=== PATIENT | male | born 1945 | race Caucasian/White ===

== ENCOUNTER 2016-11-12 10:30 | Inpatient (IN) ==
[2016-11-12] MEDS ORDERED: Lidocaine -MPF 1% 2 ML VIAL ID ONE (10:55)
[2016-11-12] MEDS ORDERED: CeFAZolin Pre 2,000 MG/100 ML 2,000 MG/100 ML BAG IVPB ONE (10:55)
[2016-11-12] MEDS ORDERED: *HR* FentaNYL (PF) 100 MCG/2 ML VIAL ONE (11:05)
[2016-11-12] MEDS ORDERED: Lidocaine -MPF 2% 2 ML VIAL ONE (11:06)
[2016-11-12] MEDS ORDERED: *HR* Midazolam HCl 2 MG/2 ML VIAL ONE (11:06)
[2016-11-12] MEDS ORDERED: *HR* Rocuronium Bromide 50 MG/5 ML VIAL ONE (11:06)
[2016-11-12] MEDS ORDERED: *HR* Propofol 200 MG/20 ML VIAL IVP ONE ×2 (11:06→13:04)
[2016-11-12] MEDS: Plasma-Lyte A (PH 7.4) 1,000 ML IVC SCH ×2 (11:10→14:15)
[2016-11-12] MEDS ORDERED: Insulin Human Regular 10 UNIT in 0.9 % Sodium Chloride 10 ML IV ONE (11:19)
--- NOTE | 2016-11-12 11:37 | Anesthesia Evaluation PreOp ---
Date of Encounter: 11/12/16 Time of Encounter: 11:35 - Past History Planned Operation: left BKA Cardiac History: HTN, Other (PAD) Pulmonary History: Denies Any Significant HX CARDIOVASCULAR PHYSICIAN ASSISTANT History: Other (tremors) Other Medical History: Diabetes Type II Anesthesia History: No Prior Anesthetic Complications, Past Anesthesia (right BKA) Alcohol Use: none Drug use: none Medications and Allergies Aspirin [Lo-Dose Aspirin EC] 81 mg PO DAILY 11/09/16 [History] Collagenase Oint [Santyl] 1 appl TP BID 11/09/16 [History] Insulin ASPART [Novolog] 20 unit SQ BID 11/09/16 [History] Insulin Glargine [Lantus] 40 unit SQ BID 11/09/16 [History] Lisinopril-HCTZ 20-12.5 [Prinzide 20-12.5] 1 each PO DAILY 11/09/16 [History] Loratadine [Allergy Relief] 10 mg PO DAILY 11/09/16 [History] Metoprolol Tartrate [Lopressor] 50 mg PO BID 11/09/16 [History] Pentoxifylline 400 mg PO BID 11/09/16 [History] Saxagliptin HCl/Metformin HCl [Kombiglyze Xr 5-1,000 mg Tab] 1 each PO HS [History] 3 Allergy/AdvReac Type Severity Reaction Status Date / Time amlodipine [From [facility]] AdvReac Nausea Verified 11/09/16 09:12 metformin AdvReac Nausea Verified 11/09/16 09:12 - Meds/Allergy Pre-op Review Medications Reviewed: Yes Allergies Reviewed: Yes Beta Blockers on Current Med List: No Anesthesia Results - Labs Laboratory Tests 11/07/16 11/07/16 11/07/16 13:22 13:22 13:22 Hgb 15.0 Hct 43.2 Plt Count 308 PT 11.6 APTT 30.2 Sodium 136 Potassium 4.1 BUN 15 Creatinine 1.22 - Imaging EKG: report reviewed ( SINUS RHYTHM WITH OCCASIONAL VENTRICULAR PREMATURE COMPLEXES RIGHT BUNDLE BRANCH BLOCK) Anesthesia Exam Selected Entries 11/12/16 11:01 Temperature 98.0 F Pulse Rate 52 Respiratory Rate 18 Blood Pressure 197/80 O2 Sat by Pulse Oximetry 99 NPO (# of Hours): 8 Pain Scale: 3 Pain Scale Used: Numeric (1 - 10) - HEENT Pupil (Motor): EOMI Mallampati: II Teeth: Missing, Poor dentition Oral Opening: Greater than 3 - CARDIOVASCULAR PHYSICIAN ASSISTANT LOC: Oriented CARDIOVASCULAR PHYSICIAN ASSISTANT Motor: Normal RUE, Normal LUE, Normal RLE, Normal LLE, Normal Face CARDIOVASCULAR PHYSICIAN ASSISTANT Sensory: Normal: RUE, LUE, RLE, LLE, Face - Cardiac Rhythm: Regular Murmur: None - Pulmonary Breath Sounds: bilateral Clear Respiratory Effort: Symmetrical Anesthesia Assess/Plan ASA Score: 3 Modified [place] Scale for Level of Consciousness: Cooperative, oriented, and tranquil Anesthetic Plan: General Monitoring Plan: Standard Monitors Recovery Plan: PACU (discussed risks of GA, questions answered and agrees to proceed)
--- NOTE | 2016-11-12 12:42 | History & Physical Report ---
Date of Encounter: 11/12/16 Time of Encounter: 12:41 24 Hour HP Update - Instructions Instructions: If the History and Physical is less than 30 days old and was completed prior to A.M. admission and or procedure and has NOT been updated on calendar day of procedure please complete this update prior to performing procedure. - Update Patient reports changes in Medical Condition: No Changes in examination, assessment, or condition: No Changes in Medication: No Preop tests/diagnostics Reviewed: Yes Pre-Op MRSA Screen: Negative Surgery Remains Indicated: Yes Consent for Planned Operative Procedure(s) Verified: Yes - Pre-Operative Checklist Preoperative Checklist Indicated: Yes Prophylactic Antibiotic Ordered: Yes Home Medications Include Beta Sarah: Yes Beta Sarah Taken Today (Day of Surgery): Yes Beta Sarah Taken Yesterday (Day Prior to Surgery): Yes Is VTE Prophylaxis Indicated?: NO
[2016-11-12] MEDS ORDERED: EPHEDrine 50 MG/ML VIAL ONE (13:11)
[2016-11-12] MEDS ORDERED: *HR* Labetalol 20 MG/4 ML SYRINGE IVP PRN (13:28)
[2016-11-12] MEDS ORDERED: Ondansetron 4 MG/2 ML VIAL IVP ONE (13:28)
[2016-11-12] MEDS ORDERED: *HR* Morphine 2 MG/ML SYRINGE IVP PRN ×2 (13:28→16:00)
[2016-11-12] MEDS ORDERED: *HR* HYDROmorphone (PF) 1 MG/ML SYRINGE IVP PRN (13:28)
[2016-11-12] MEDS ORDERED: Neostigmine Methylsulfate 3 MG/3 ML SYRINGE ONE (13:30)
[2016-11-12] MEDS ORDERED: Dexamethasone 4 MG/ML VIAL ONE (13:30)
--- NOTE | 2016-11-12 15:04 | Operative Note ---
Date of procedure: 11/12/16 Pre-op diagnosis: non healing left foot ulcer Post-op diagnosis: same Procedure: left below knee amputation Complications: none Anesthesia: GETA Surgeon: Kory Meyer Estimated blood loss (cc): 250 Specimen: left BKA Condition: stable Disposition: PACU Procedure in Detail: History Adama Delarosa is a 70-year-old white male with a long history of diabetes and peripheral vascular disease. He has previously undergone a right kbaff-isc-isst amputation. He developed a left foot ulcer. It was unresponsive to medical treatment. 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 Because of this the patient was recommended to undergo amputation and he now comes for that procedure. Procedure After informed consent was obtained the patient was taken to the operating room. General endotracheal anesthesia was established. The left lower extremity was sterilely prepped and draped. The left foot was placed in isolation bag. A timeout protocol was observed. A posterior based flap incision was then made circumferentially with the incision carried down to and through the fascia circumferentially. The compartments were then individually addressed with the muscle and the neurovascular bundles divided and where appropriate ligated. The periosteum was raised on the fibula and a portion of the fibula was removed. The dissection was carried circumferentially with division of the muscles. Then finally the periosteum was raised on the tibia. The tibia was then divided using a sagittal saw. The edges of the bone were then rasped smooth. The wound was copiously irrigated with antibiotic containing solution. All the muscle ends were viable. There is no signs of infection. There was mild to moderate edema present. The wound was then reapproximated using interrupted 2-0 Vicryl suture. Hope were used for the skin edges. Dry sterile dressings were then applied including Xeroform gauze, fluffed 4 x 4's, Kerlix roll, and Jesus wraps. The patient was extubated in the operating room. He was taken to the recovery room in stable condition. There were no intraoperative complications.
--- NOTE | 2016-11-12 15:56 | Anesthesia Evaluation Post Op ---
Date of Encounter: 11/12/16 Time of Encounter: 15:56 - Vital Signs Vital Signs: Vital Signs/O2 Sat, Most Current Temp Pulse Resp BP Pulse Ox 97.9 F 64 18 158/63 96 11/12/16 15:49 11/12/16 15:49 11/12/16 15:49 11/12/16 15:49 11/12/16 15:49 - Lungs Lungs: Clear Ascult./Percussion - Airway Airway: Non-obstructed - Cardiovascular Regular Rate - Mental Status Mental Status: Alert & Oriented, Answers Appropriately - Pain Pain Scale: 3 Pain Scale used: Numeric (1 - 10) - Nausea Vomiting Nausea Vomiting: Not Present - Hydration Hydration: Ice chips, Starr catheter - Discharge PostOp Status: Transfer Patient to floor
[2016-11-12] MEDS ORDERED: Ondansetron ODT 4 MG TAB.RAPDIS SL PRN (16:00)
[2016-11-12] MEDS ORDERED: *HR* Dextrose 50 % in Water (Syg) 50 ML SYRINGE IVP PRN (16:55)
[2016-11-12] MEDS ORDERED: Dextrose Gel 15 GM PO PRN ×2 (16:55)
[2016-11-12] MEDS ORDERED: D5% in Water 1,000 ML IVC PRN (16:55)
[2016-11-12] MEDS: *HR* Morphine 2 MG/ML SYRINGE IVP PRN ×2 (17:04→22:54)
[2016-11-12] MEDS: Insulin LISPRO 300 UNITS/3 ML VIAL SQ SCH ×2 (17:18→21:43)
[2016-11-12] MEDS: *HR* HYDROcodone/Acet 5/325 mg TABLET PO PRN (18:05)
[2016-11-12] MEDS: ceFAZolin 2,000 MG in D5% in Water 100 ML IVPB SCH (20:12)
[2016-11-12] MEDS ORDERED: Insulin LISPRO 300 UNITS/3 ML VIAL SQ SCH (21:00)
[2016-11-12] MEDS ORDERED: NON-FORMULARY MEDICATION 1 EACH EACH (Insulin Glargine [Lantus] 40 UNIT) SQ SCH (21:00)
[2016-11-12] MEDS: Insulin DETEMIR 100 UNIT/ML X5UNITS SQ SCH (21:43)
[2016-11-13] MEDS: ceFAZolin 2,000 MG in D5% in Water 100 ML IVPB SCH ×2 (04:38→11:04)
[2016-11-13 06:31] LABS: Basophils % 0.1 %; Eosinophils % 0.1 %; Hematocrit 36.3 % (37.5-50.1); Immature Granulocytes % 0.8 % (0-4); Lymphocytes # 1.7 K/mcL (0.6-4.6); Lymphocytes % 11.2 %; Mean Corpuscular HGB Conc 33.3 g/dL (31.6-35.5); Mean Corpuscular Hemoglobin 28.2 pg (28.0-33.3); Mean Corpuscular Volume 84.6 fL (83.0-100.0); Mean Platelet Volume 10.5 fL (9.4-12.4); Monocytes # 0.9 K/mcL (0.0-1.3); Monocytes % 6.1 %; Neutrophils # 12.4 K/mcL (1.6-8.9); Platelet Count 292 K/mcL (140-400); Red Blood Count 4.29 M/mcL (4.19-5.50); Segmented Neutrophils % 81.7 %
[2016-11-13 06:35] LABS: Hemoglobin 12.1 g/dL (12.9-16.9)
[2016-11-13 06:43] LABS: BUN/Creatinine Ratio 19 (6-26); Blood Urea Nitrogen 23 mg/dL (8-26); Calcium 9.1 mg/dL (8.6-10.8); Carbon Dioxide 28 mEq/L (19-29); Chloride 96 mEq/L (98-109); Glucose 307 mg/dL (70-99); Osmolality,Calculated 289 (280-300); Potassium 4.6 mEq/L (3.5-4.5); Sodium 132 mEq/L (136-145); eGFR For African Americans > 60 (> 60); eGFR For Non-African Americans 58 (> 60)
[2016-11-13] MEDS: Loratadine 10 MG TABLET PO SCH (08:18)
[2016-11-13] MEDS: Aspirin Enteric Coated 81 MG Tablet PO SCH (08:18)
[2016-11-13] MEDS: Lisinopril-HCTZ 20-12.5mg TABLET PO SCH (08:18)
[2016-11-13] MEDS: Insulin DETEMIR 100 UNIT/ML X5UNITS SQ SCH ×2 (08:19→21:07)
[2016-11-13] MEDS: Insulin LISPRO 300 UNITS/3 ML VIAL SQ SCH ×5 (08:19→21:08)
--- NOTE | 2016-11-13 08:19 | Vascular/Endovas Progress Note ---
Date of Encounter: 11/13/16 Time of Encounter: 08:16 - Assessment and plan (1) PAD (peripheral artery disease) Current Visit: Yes Status: Chronic non healing left foot wound. Severe and non reconstructible left LE vascular disease. (2) Diabetes Current Visit: Yes Status: Chronic DM under medical treatment Qualifiers: Diabetes mellitus type: type 2 Diabetes mellitus complication status: with circulatory complication Diabetes mellitus complication detail: with peripheral angiopathy with gangrene Diabetes mellitus termite exterminator insulin use: with termite exterminator use Qualified Code(s): E11.52 - Type 2 diabetes mellitus with diabetic peripheral angiopathy with gangrene; Z79.4 - [facility] (current) use of insulin - Subjective Interval history: POD #1 from left BKA. No c/o's. Good night. Pain under good control. Vital Signs, Last 4 Hours Temp Pulse Resp BP Pulse Ox 11/13/16 07:28 97.5 F L 53 18 124/56 94 - Physical Examination General: Present: Conversant, No Apparent Distress HEENT: Present: Atraumatic Neck: Absent: JVD Cardiac: Present: Reg Rate and Rhythm Neuro: Present: Alert and responsive, No focal deficits noted Vascular: Present: Normal capillary refill, Amputation(s) (left bka dressing intact) - VTE Reasons for not Prescribing Prophylaxis: Treatment not Indicated - Low risk for VTE Results 11/13/16 06:08 11/13/16 06:08 Lab Results, Last 24 hours 11/13/16 11/13/16 06:08 06:08 WBC 15.2 H Hgb 12.1 L D Hct 36.3 L Plt Count 292 Sodium 132 L Potassium 4.6 H Chloride 96 L Carbon Dioxide 28 BUN 23 Creatinine 1.24 Glucose 307 H Calcium 9.1 Consult Discharge Plan - Plan Referrals: Elvia Hernandez, CATERING AND EVENTS MANAGER [Primary Care Provider] -
[2016-11-13] MEDS: *HR* HYDROcodone/Acet 5/325 mg TABLET PO PRN ×2 (09:01→16:53)
[2016-11-13] MEDS: SITAGLIPTIN PHOS PO SCH (09:04)
[2016-11-13] MEDS: METFORMIN HCL PO SCH (09:04)
[2016-11-13] MEDS: *HR* Morphine 2 MG/ML SYRINGE IVP PRN ×2 (11:00→16:53)
[2016-11-13] MEDS ORDERED: Insulin LISPRO 300 UNITS/3 ML VIAL SQ SCH (21:00)
[2016-11-14] MEDS: *HR* HYDROcodone/Acet 5/325 mg TABLET PO PRN ×2 (02:24→11:50)
[2016-11-14] MEDS: Loratadine 10 MG TABLET PO SCH (08:02)
[2016-11-14] MEDS: Lisinopril-HCTZ 20-12.5mg TABLET PO SCH (08:02)
[2016-11-14] MEDS: Aspirin Enteric Coated 81 MG Tablet PO SCH (08:02)
[2016-11-14] MEDS: SITAGLIPTIN PHOS PO SCH (08:03)
[2016-11-14] MEDS: METFORMIN HCL PO SCH (08:03)
[2016-11-14] MEDS: Insulin LISPRO 300 UNITS/3 ML VIAL SQ SCH ×3 (08:03→11:50)
[2016-11-14] MEDS: Insulin DETEMIR 100 UNIT/ML X5UNITS SQ SCH (08:03)
--- NOTE | 2016-11-14 08:11 | Discharge Summary ---
Date of Encounter: 11/14/16 Time of Encounter: 08:08 - Discharge Diagnosis (1) PAD (peripheral artery disease) Priority: Primary Status: Chronic Comments: non healing left foot wound. s/p right BKA. (2) Diabetes Priority: Secondary Status: Chronic Comments: under medical management Qualifiers: Diabetes mellitus type: type 2 Diabetes mellitus complication status: with circulatory complication Diabetes mellitus complication detail: with peripheral angiopathy with gangrene Diabetes mellitus residential mortgage underwriter insulin use: with residential mortgage underwriter use Qualified Code(s): E11.52 - Type 2 diabetes mellitus with diabetic peripheral angiopathy with gangrene; Z79.4 - fraternity adviser (current) use of insulin (3) Postoperative urinary retention Priority: Secondary Status: Acute Comments: The patient was noted to have a large postvoid residual that was measured greater than 999 mL. A Starr catheter was inserted and the patient had well over 1000 mL's of urine. Therefore a Starr catheter was left in position. The patient will be transferred to [facility] for rehabilitation following his amputation surgery. The patient will need postoperative urologic consultation as an outpatient to manage this urinary retention. Specifically the patient denies any previous problems with bladder obstruction or prostatic hypertrophy. He specifically denies any significant problems with urinary issues to suggest preoperative uropathy. - Discharge Medications Prescriptions: HYDROcodone/Acet 5/325 mg [[place] 5-325 mg] 1 tab PO Q6HR PRN #20 tab PRN Reason: Pain Home Medications: Aspirin [Lo-Dose Aspirin EC] 81 mg PO DAILY 11/09/16 [History] Insulin ASPART [Novolog] 10 unit SQ BID 11/09/16 [History] Insulin Glargine [Lantus] 40 unit SQ BID 11/09/16 [History] Lisinopril-HCTZ 20-12.5 [Prinzide 20-12.5] 1 each PO DAILY 11/09/16 [History] Loratadine [Allergy Relief] 10 mg PO DAILY 11/09/16 [History] Metoprolol Tartrate [Lopressor] 50 mg PO BID 11/09/16 [History] Pentoxifylline 400 mg PO BID 11/09/16 [History] Sitagliptin Phos/Metformin HCl [Janumet Xr 100-1,000 mg Tablet] 1 each PO DAILY 11/12/16 [History] HYDROcodone/Acet 5/325 mg [[place] 5-325 mg] 1 tab PO Q6HR PRN #20 tab 11/14/16 [ Rx] Allergies/Adverse Reactions: 3 Allergy/AdvReac Type Severity Reaction Status Date / Time amlodipine [From [facility]] AdvReac Nausea Verified 11/12/16 12:03 metformin AdvReac Nausea Verified 11/12/16 12:03 Date of admission: 11/12/16 16:04 Primary care physician: Elvia Hernandez CNP Consults: 11/12/16 16:00 Consult to Physical Therapy [CONS] Routine Comment: Evaluate, develop and implement POC Reason for Consult: s/p left BKA Consult to Babysitter [CONS] Routine Reason for SW Consult: [facility] op [facility] 11/13/16 08:20 Consult to Occupational Therapy [CONS] Routine Comment: Evaluate, develop and implement POC Reason for Consult: s/p Left BKA Procedure(s) Performed: left BKA Discharging clinician: Kory Meyer Anticipated date of discharge: 11/14/16 - Patient Status Disposition: Transfer Inpatient Rehab Fac Condition: Fair Functional capacity at discharge: wheelchair bound Overall status at discharge: patient is progressing back to baseline - Discharge Instructions Instructions: Hydrocodone/Acetaminophen (By mouth) Follow Up With: Elvia Hernandez CNP [Primary Care Provider] - (PT IS GOING TO [facility] NO PCP APPOINTMENT IS NEEDED) Kory Meyer MD [Partnered Physician] - 12/26/16 9:45 am Additional Instructions: daily dressing changes to left BKA-dry to dry with Jesus wrap Keep left BKA staple line drive for a total of 5 days following surgery. Then may wash the area with soap and water and dry with towel. may use right BKA per physical therapy PT and OT [facility] to gravity drainage. May manage Starr for postoperative urinary retention per protocol and after 24 hours the Starr catheter may be removed for postvoid residual and further urologic evaluation. Patient will need outpatient urologic consultation for postoperative urinary retention. - Diet and Activity Activity: as per physical therapy Diet: diabetic diet - Hospital Course Hospital course: Mr. Delarosa is a 71 year old male with non healing left foot wound with clinical osteomyelitis. Angiogram demonstrated non reconstructible vascular lesions. Pt underwent left BKA. Pt did well post op. To Rehab upon discharge. The patient was noted to have a large postvoid residual. Starr catheter was inserted with greater than 1000 mL of urine. The Starr catheter was then left in position and the patient will be transferred to [facility] with an indwelling Starr for further urologic management and patient will require outpatient urology consultation for postoperative urinary retention. - Time Spent with Patient Total time spent providing and/or coordinating discharge services: Exam Vital Signs, Last 4 Hours Temp Pulse Resp BP Pulse Ox 11/14/16 07:25 97.9 F 56 17 132/58 96 11/14/16 04:17 97.6 F 55 16 139/59 95 General: Present: Conversant, No Apparent Distress, Well developed HEENT: Present: Atraumatic Neck: Absent: JVD Cardiac: Present: Reg Rate and Rhythm Neuro: Present: Alert and responsive, No focal deficits noted Vascular: Present: Amputation(s) (s/p Bilat BKA's. Left BKA dressing was evaluated and found to be clean and dry. All flaps were viable. Staple line was intact. There is no signs of infection or edema.) - VTE Reasons for not Prescribing Prophylaxis: Treatment not Indicated - Low risk for VTE
[2016-11-14] MEDS ORDERED: *HR* SitaGLIPtin 100 MG TABLET PO SCH (14:15)
[2016-11-14] MEDS ORDERED: *HR* Metformin 500 MG TABLET PO SCH (14:15)
[2016-11-14 16:15] VITALS: BP 177/68
--- NOTE | 2016-11-15 16:57 | Electrocardiograph Report ---
[place] [id number] Test Date: 2016-11-14 Pat Name: Adama Delarosa Department: 110 Room: 2N12 Gender: M [employer] Firer: CRUZ : 1945 Requested By: Kory Meyer Order Number: [id number] Reading MD: Jaja Christianson Measurements Intervals [place] Rate: 60 P: -18 AR: 178 QRS: -29 QRSD: 153 T: -19 QT: 452 QTc: 453 Interpretive Statements SINUS RHYTHM WITH OCCASIONAL VENTRICULAR PREMATURE COMPLEXES BORDERLINE LEFT AXIS DEVIATION RIGHT BUNDLE BRANCH BLOCK POSSIBLE OLD INFERIOR MN MINIMAL VOLTAGE CRITERIA FOR LVH, CONSIDER NORMAL VARIANT Electronically Signed On 11-15-2016 16:55:38 EDT by Jaja Christianson
== END 2016-11-14 17:35 | DRG 240 ==
LOC: SAMDAY 10:30 → 2NNU 16:04
PROVIDERS: ADMIT Surgery Vascular Surgery; ATTEND Surgery Vascular Surgery